=== PATIENT | female | born 1975 | race American Indian/Alaskan Native ===

== ENCOUNTER 2019-08-18 02:41 | Inpatient (IN) | payer OTHER ==
[2019-08-18] MEDS ORDERED: NACL 0.9% 500 ML 500 ML IV ONE (03:24)
[2019-08-18] MEDS ORDERED: TYLENOL PO ONE (03:58)
[2019-08-18 04:13] LABS: Hematocrit 39.1 % (30.3-42.9); Hemoglobin 12.6 gm/dl (10.1-14.3); Mean Corpuscular HGB Conc 32 % (30-34); Mean Corpuscular Volume 83 fl (79-97); Platelet Count 331 K/mm3 (140-440); Red Blood Count 4.71 M/mm3 (3.65-5.03); Red Cell Distribution Width 14.7 % (13.2-15.2)
[2019-08-18 04:31] LABS: INR 1.26 (0.87-1.13)
[2019-08-18] MEDS ORDERED: ROCEPHIN/NS 2 GM/100 ML 2 GM/100 ML BAG IV ONE (04:50)
[2019-08-18 04:57] LABS: Basophils % (Manual) 0 % (0.0-1.8); Eosinophils % (Manual) 0 % (0.0-4.3); Total Cells Counted 100
[2019-08-18 04:58] LABS: Anisocytosis 1+; Platelet Estimate Consistent w Auto
[2019-08-18 05:00] LABS: Alanine Aminotransferase TNR units/L (7-56); Albumin TNR g/dL (3.9-5); BUN/Creatinine Ratio TNR; Blood Urea Nitrogen TNR mg/dL (7-17); Calcium TNR mg/dL (8.4-10.2)
[2019-08-18 05:01] LABS: Hemolysis Index TNR
--- NOTE | 2019-08-18 05:50 | Cat Scan Report ---
CONTRAST-ENHANCED CT SCAN OF THE NECK: INDICATION: sore throat, leukocytosis, neck swelling TECHNIQUE: Contiguous thin cut axial images obtained through the neck following IV injection of 100 mL of Omnipa que 300. Sagittal and coronal reconstructions performed by the technologist. All CT scans at this [facility] ation are performed using CT dose reduction for ALARA by means of automated exposure control. COMPARISON: None available. FINDINGS: MUCOSAL SPACE: Both faucial tonsils are enlarged. I do not see CT findings to suggest tonsillar absce ss at this time. Airway is narrowed. 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 Oropharynx and vallecula, floor of mouth, hypopharynx, and larynx are grossly normal. LYMPH NODES: Reactive lymph nodes are seen level2 & level 3. SALIVARY GLANDS: Parotid, submandibular, and visualized sublingual glands are within normal limits. THYROID GLAND: Unremarkable. PARANASAL SINUSES: Visualized paranasal sinuses and mastoid air cells are essentially clear. SPINE: No significant abnormality of the cervical spine appreciated. VASCULAR STRUCTURES: Vascular structures are grossly normal in appearance. Surrounding soft tissues are otherwise grossly normal. IMPRESSION: 1. Both faucial tonsils are markedly enlarged narrowing the airway I do not see CT findings to suggest peritonsillar abscess Signer Name: She Hamlin MD Signed: 08/18/2019 5:46 AM Workstation Name: [id number]
[2019-08-18 05:56] LABS: Alanine Aminotransferase 35 units/L (7-56); Albumin 3.6 g/dL (3.9-5); BUN/Creatinine Ratio 13; Blood Urea Nitrogen 8 mg/dL (7-17); Calcium 8.1 mg/dL (8.4-10.2); Hemolysis Index 6
[2019-08-18] MEDS ORDERED: CLEOCIN 600 MG/50 mL 600 MG/50 ML BAG IV ONE (06:10)
[2019-08-18] MEDS ORDERED: NACL 0.9% 1000 ML 1,000 ML IV ONE (06:11)
--- NOTE | 2019-08-18 06:11 | Emergency Department Report ---
ED General Adult HPI - General Chief complaint: Sore Throat Stated complaint: FLU SYMPTOMS Time Seen by Provider: 08/18/19 06:08 Source: patient Mode of arrival: Ambulatory Limitations: No Limitations - History of Present Illness Initial comments: 44-year-old female with sore throat for the past few days. She states that she noted that her voice was "different this morning"but did not have any drooling or any ofelia difficulty in breathing. She's had an occasional cough. She was not aware of her fever and has not been having chills. She denies medical comorbidities other than rheumatoid arthritis. He states that she is on Humira. -: Gradual, days(s) Location: mouth (throat) Severity scale (0 -10): 8 Quality: other (sore) Consistency: constant Improves with: none Worsens with: none Associated Symptoms: denies other symptoms Treatments Prior to Arrival: none - Related Data Allergies Allergy/AdvReac Type Severity Reaction Status Date / Time No Known Allergies Allergy Verified 08/18/19 02:49 ED Review of Systems ROS: Stated complaint: FLU SYMPTOMS Other details as noted in HPI Constitutional: denies: chills, fever Eyes: denies: eye pain, eye discharge, vision change ENT: throat pain. denies: ear pain Respiratory: denies: cough (very occasional), shortness of breath, wheezing Cardiovascular: denies: chest pain, palpitations Endocrine: no symptoms reported Gastrointestinal: denies: abdominal pain, nausea, diarrhea Genitourinary: denies: urgency, dysuria, discharge Musculoskeletal: denies: back pain, joint swelling, arthralgia Skin: denies: rash, lesions Neurological: denies: headache, weakness, paresthesias Psychiatric: denies: anxiety, depression Hematological/Lymphatic: denies: easy bleeding, easy bruising ED Past Medical Hx - Past Medical History Hx Arthritis: Yes (rheumatoid) - Surgical History Past Surgical History?: Yes Hx Appendectomy: Yes - Social History Smoking Status: Never Smoker Substance Use Type: None ED Physical Exam - General Limitations: Physical Limitation General appearance: alert, in no apparent distress, obese - Head Head exam: Present: atraumatic, normocephalic - Eye Eye exam: Present: normal appearance. Absent: scleral icterus - ENT ENT exam: Present: mucous membranes moist, other (exudative pharyngitis begin tonsillar swelling. No trismus.) - Neck Neck exam: Present: normal inspection, full ROM, lymphadenopathy (bilateral submandibular nodes no neck edema no erythema no fluctuance and no mass affect). Absent: tenderness, meningismus, thyromegaly - Respiratory Respiratory exam: Present: normal lung sounds bilaterally. Absent: respiratory distress - Cardiovascular Cardiovascular Exam: Present: normal rhythm, tachycardia. Absent: systolic murmur, diastolic murmur, rubs, gallop - GI/Abdominal GI/Abdominal exam: Present: soft, normal bowel sounds. Absent: distended, tenderness, guarding, rebound, rigid - Extremities Exam Extremities exam: Present: normal inspection - Back Exam Back exam: Present: normal inspection - Neurological Exam Neurological exam: Present: alert, oriented X3, CN II-XII intact. Absent: motor sensory deficit - Psychiatric Psychiatric exam: Present: normal affect, normal mood - Skin Skin exam: Present: warm, dry, intact, normal color. Absent: rash ED Course Vital Signs 08/18/19 08/18/19 08/18/19 02:48 03:21 03:23 Temperature 100.4 F H 102.2 F H Pulse Rate 134 H 130 H Pulse Rate [ Anterior Bilateral Throughout] Respiratory 20 32 H Rate Respiratory Rate [Anterior Bilateral Throughout] Blood Pressure 132/83 Blood Pressure [Left] O2 Sat by Pulse 100 96 Oximetry 08/18/19 08/18/19 08/18/19 03:31 03:45 04:01 Temperature Pulse Rate 126 H 121 H 119 H Pulse Rate [ Anterior Bilateral Throughout] Respiratory 31 H 12 26 H Rate Respiratory Rate [Anterior Bilateral Throughout] Blood Pressure 145/67 145/67 115/52 Blood Pressure [Left] O2 Sat by Pulse 96 98 93 Oximetry 08/18/19 08/18/19 08/18/19 04:15 04:18 04:30 Temperature Pulse Rate 119 H 117 H Pulse Rate [ Anterior Bilateral Throughout] Respiratory 28 H 26 H 24 Rate Respiratory Rate [Anterior Bilateral Throughout] Blood Pressure 118/53 125/70 Blood Pressure [Left] O2 Sat by Pulse 95 94 Oximetry 08/18/19 08/18/19 08/18/19 04:52 05:08 05:31 Temperature 102.9 F H Pulse Rate Pulse Rate [ Anterior Bilateral Throughout] Respiratory 16 22 Rate Respiratory Rate [Anterior Bilateral Throughout] Blood Pressure 108/63 Blood Pressure [Left] O2 Sat by Pulse Oximetry 08/18/19 08/18/19 08/18/19 06:01 06:31 06:47 Temperature Pulse Rate Pulse Rate [ Anterior Bilateral Throughout] Respiratory 24 29 H 19 Rate Respiratory Rate [Anterior Bilateral Throughout] Blood Pressure 108/63 120/72 Blood Pressure [Left] O2 Sat by Pulse 97 Oximetry 08/18/19 08/18/19 08/18/19 07:00 07:27 08:05 Temperature 98.2 F Pulse Rate 100 H 102 H Pulse Rate [ 109 H Anterior Bilateral Throughout] Respiratory 30 H 16 Rate Respiratory 20 Rate [Anterior Bilateral Throughout] Blood Pressure 107/65 Blood Pressure 107/62 [Left] O2 Sat by Pulse 87 100 Oximetry - Reevaluation(s) Reevaluation #1: The patient's CT shows significant tonsillar hypertrophy and airway narrowing at the level however the patient is able to lay down supine. When she is awake her sats are quite normal. She has no respiratory distress she has no trismus she has no drooling. I asked the anesthesiologist to consult on this patient. He examined her airway. He stated that he gets actually see her epiglottis and that it looked fine. He had a good airway view on a Mallenpati Exam therefore. Stated that the patient might benefit from racemic epi neb which I have already ordered. He stated that the patient could be noted to the ICU here. He does not anticipate any difficulty with intubation. However, we agree that the patient's airway does not require preemptive management. In fact, we do not think that future intubation is at all likely. 08/18/19 08:50 Reevaluation #2: Spoke with the ENT specialist at [facility]. She stated that she does not believe it is necessary to transfer this patient. She stated that many patients with tremendous tonsils have similar CTs and do not require any acute intervention. She states she has never had a patient with tonsillitis require airway intervention. Furthermore she states that airway management should not be difficult with direct laryngoscopy and the patient with large tonsils. Therefore she states that the patient does not require transfer for ENT consultation at this time. Hospitalist staff was informed. They have agreed to admit the patient to this facility. 08/18/19 09:25 ED Medical Decision Making - Lab Data Result diagrams: 08/18/19 03:45 08/18/19 05:29 Laboratory Results - last 24 hr 08/18/19 08/18/19 08/18/19 03:44 03:44 03:45 WBC 26.8 H RBC 4.71 Hgb 12.6 Hct 39.1 MCV 83 MCH 27 L MCHC 32 RDW 14.7 Plt Count 331 Add Manual Diff Complete Total Counted 100 Seg Neuts % (Manual) 84.0 H Band Neutrophils % 0 Lymphocytes % (Manual) 6.0 L Reactive Lymphs % (Man) 0 Monocytes % (Manual) 10.0 H Eosinophils % (Manual) 0 Basophils % (Manual) 0 Metamyelocytes % 0 Myelocytes % 0 Promyelocytes % 0 Blast Cells % 0 Nucleated RBC % Not Reportable Seg Neutrophils # Man 22.5 H Band Neutrophils # 0.0 Lymphocytes # (Manual) 1.6 Abs React Lymphs (Man) 0.0 Monocytes # (Manual) 2.7 H Eosinophils # (Manual) 0.0 Basophils # (Manual) 0.0 Metamyelocytes # 0.0 Myelocytes # 0.0 Promyelocytes # 0.0 Blast Cells # 0.0 WBC Morphology Not Reportable Hypersegmented Neuts Not Reportable Hyposegmented Neuts Not Reportable Hypogranular Neuts Not Reportable Smudge Cells Not Reportable Toxic Granulation Not Reportable Toxic Vacuolation Not Reportable Dohle Bodies Not Reportable Pelger-Huet Anomaly Not Reportable Luz Maria Rods Not Reportable Platelet Estimate Consistent w auto Clumped Platelets Not Reportable Plt Clumps, EDTA Not Reportable Large Platelets Not Reportable Giant Platelets Not Reportable Platelet Satelliting Not Reportable Plt Morphology Comment Not Reportable RBC Morphology Not Reportable Dimorphic RBCs Not Reportable Polychromasia Not Reportable Hypochromasia Not Reportable Poikilocytosis Not Reportable Anisocytosis 1+ Microcytosis Not Reportable Macrocytosis Not Reportable Spherocytes Not Reportable Pappenheimer Bodies Not Reportable Sickle Cells Not Reportable Target Cells Not Reportable Tear Drop Cells Not Reportable Ovalocytes Not Reportable Helmet Cells Not Reportable [place] Bodies Not Reportable [place] Rings Not Reportable [place] Cells Not Reportable Bite Cells Not Reportable Crenated Cell Not Reportable Elliptocytes Not Reportable Acanthocytes (Spur) Not Reportable Rouleaux Not Reportable Hemoglobin C Crystals Not Reportable Schistocytes Not Reportable Malaria parasites Not Reportable William Bodies Not Reportable Hem Pathologist Commnt No PT 15.5 H INR 1.26 H VBG pH 7.438 H Sodium Potassium Chloride Carbon Dioxide Anion Gap BUN Creatinine Estimated GFR BUN/Creatinine Ratio Glucose Lactic Acid Calcium Total Bilirubin AST ALT Alkaline Phosphatase Total Protein Albumin Albumin/Globulin Ratio HCG, Qual 08/18/19 08/18/19 08/18/19 03:45 03:45 03:50 WBC RBC Hgb Hct MCV MCH MCHC RDW Plt Count Add Manual Diff Total Counted Seg Neuts % (Manual) Band Neutrophils % Lymphocytes % (Manual) Reactive Lymphs % (Man) Monocytes % (Manual) Eosinophils % (Manual) Basophils % (Manual) Metamyelocytes % Myelocytes % Promyelocytes % Blast Cells % Nucleated RBC % Seg Neutrophils # Man Band Neutrophils # Lymphocytes # (Manual) Abs React Lymphs (Man) Monocytes # (Manual) Eosinophils # (Manual) Basophils # (Manual) Metamyelocytes # Myelocytes # Promyelocytes # Blast Cells # WBC Morphology Hypersegmented Neuts Hyposegmented Neuts Hypogranular Neuts Smudge Cells Toxic Granulation Toxic Vacuolation Dohle Bodies Pelger-Huet Anomaly Luz Maria Rods Platelet Estimate Clumped Platelets Plt Clumps, EDTA Large Platelets Giant Platelets Platelet Satelliting Plt Morphology Comment RBC Morphology Dimorphic RBCs Polychromasia Hypochromasia Poikilocytosis Anisocytosis Microcytosis Macrocytosis Spherocytes Pappenheimer Bodies Sickle Cells Target Cells Tear Drop Cells Ovalocytes Helmet Cells [place] Bodies [place] Rings [place] Cells Bite Cells Crenated Cell Elliptocytes Acanthocytes (Spur) Rouleaux Hemoglobin C Crystals Schistocytes Malaria parasites William Bodies Hem Pathologist Commnt PT INR VBG pH Sodium TNR Potassium TNR Chloride TNR Carbon Dioxide TNR Anion Gap TNR BUN TNR Creatinine TNR Estimated GFR TNR BUN/Creatinine Ratio TNR Glucose TNR Lactic Acid 1.60 Calcium TNR Total Bilirubin TNR AST TNR ALT TNR Alkaline Phosphatase TNR Total Protein TNR Albumin TNR Albumin/Globulin Ratio TNR HCG, Qual Negative 08/18/19 08/18/19 05:29 05:29 WBC RBC Hgb Hct MCV MCH MCHC RDW Plt Count Add Manual Diff Total Counted Seg Neuts % (Manual) Band Neutrophils % Lymphocytes % (Manual) Reactive Lymphs % (Man) Monocytes % (Manual) Eosinophils % (Manual) Basophils % (Manual) Metamyelocytes % Myelocytes % Promyelocytes % Blast Cells % Nucleated RBC % Seg Neutrophils # Man Band Neutrophils # Lymphocytes # (Manual) Abs React Lymphs (Man) Monocytes # (Manual) Eosinophils # (Manual) Basophils # (Manual) Metamyelocytes # Myelocytes # Promyelocytes # Blast Cells # WBC Morphology Hypersegmented Neuts Hyposegmented Neuts Hypogranular Neuts Smudge Cells Toxic Granulation Toxic Vacuolation Dohle Bodies Pelger-Huet Anomaly Luz Maria Rods Platelet Estimate Clumped Platelets Plt Clumps, EDTA Large Platelets Giant Platelets Platelet Satelliting Plt Morphology Comment RBC Morphology Dimorphic RBCs Polychromasia Hypochromasia Poikilocytosis Anisocytosis Microcytosis Macrocytosis Spherocytes Pappenheimer Bodies Sickle Cells Target Cells Tear Drop Cells Ovalocytes Helmet Cells [place] Bodies [place] Rings [place] Cells Bite Cells Crenated Cell Elliptocytes Acanthocytes (Spur) Rouleaux Hemoglobin C Crystals Schistocytes Malaria parasites William Bodies Hem Pathologist Commnt PT INR VBG pH Sodium 136 L Potassium 4.0 Chloride 100.7 Carbon Dioxide 21 L Anion Gap 18 BUN 8 Creatinine 0.6 L Estimated GFR > 60 BUN/Creatinine Ratio 13 Glucose 136 H Lactic Acid 0.70 Calcium 8.1 L Total Bilirubin 0.30 AST 46 H ALT 35 Alkaline Phosphatase 87 Total Protein 6.8 Albumin 3.6 L Albumin/Globulin Ratio 1.1 HCG, Qual Critical care attestation.: If time is entered above; I have spent that time in minutes in the direct care of this critically ill patient, excluding procedure time. ED Disposition Clinical Impression: Exudative tonsillitis, SIRS (systemic inflammatory response syndrome) Rheumatoid arthritis Qualifiers: Rheumatoid arthritis location: unspecified site Rheumatoid factor presence: unspecified presence Qualified Code(s): M06.9 - Rheumatoid arthritis, unspecified Disposition: OP ADMIT IP TO THIS HOSP Is pt being admited?: Yes Does the pt Need Aspirin: Yes Condition: Stable Time of Disposition: 09:27
[2019-08-18] MEDS ORDERED: SOLU-Medrol IV ONE (06:35)
[2019-08-18] MEDS ORDERED: MORPHINE IV ONE ×2 (06:35→11:07)
[2019-08-18] MEDS ORDERED: ZOFRAN IV ONE (06:35)
[2019-08-18 06:50] LABS: Bilirubin,Urine NEG (Negative); Blood,Urine LG (Negative); Color,Urine Yellow (Yellow); Mucus,Urine FEW /HPF; Protein,Urine <15 mg/dL mg/dL (Negative); Urobilinogen,Urine < 2.0 mg/dL (<2.0)
[2019-08-18] MEDS ORDERED: BABY ASPIRIN PO ONE (09:28)
--- NOTE | 2019-08-18 10:39 | History and Physical Report ---
History of Present Illness Date of examination: 08/18/19 Chief complaint: Sore Throat History of present illness: Patient was seen and examined. Follow-up on current diagnosis. No overnight events reported to me. Patient denies any chest pain, shortness breath, nausea/vomiting or severe headaches. Imaging, nursing note, chart, labs and old chart reviewed. Discussed with patient. PMH: as hpi PSH: appendectomy SH: denies tob/etoh/drug abuse FH: uncle with hypertension ROS: Constitutional: denies: fever ENT: +throat or neck pain Respiratory: denies: cough, + shortness of breath Cardiovascular: denies: chest pain Endocrine: denies unexplained weight loss or gain Gastrointestinal: denies: abdominal pain, nausea Genitourinary: denies: dysuria Rectal: denies no incontinence, no bleeding, no itching, no discharge Musculoskeletal: denies swelling, myaglia, muscle weakness Skin: denies: rash Neurological: denies: severe headache Hematological/Lymphatic: denies: easy bleeding or easy bruising Allergic/Immunologic: no urticaria, no allergic rhinitis, no anaphylaxis Psych: denies sadness or hopelessness, SI/HI Medications and Allergies Allergies Allergy/AdvReac Type Severity Reaction Status Date / Time No Known Allergies Allergy Verified 08/18/19 02:49 Active Meds: Active Medications Acetaminophen (Tylenol) 650 mg PO Q6H PRN PRN Reason: Non Cardiac Pain or Temp>100.5 Heparin Sodium (Porcine) (Heparin) 5,000 unit SUB-Q Q12HR DIEGO Ampicillin Sodium/Sulbactam Sodium (Unasyn/Ns 3 Gm/100 Ml) 3 gm in 100 mls @ 200 mls/hr IV Q6HR DIEGO; Protocol Sodium Chloride (Nacl 0.9% 1000 Ml) 1,000 mls @ 100 mls/hr IV DIRECT DIEGO Morphine Sulfate (Morphine) 2 mg IV Q4H PRN PRN Reason: Pain , Severe (7-10) Ondansetron HCl (Zofran) 4 mg IV Q4H PRN PRN Reason: Nausea And Vomiting Exam - Physical Exam Narrative exam: Gen: obese bmi 46.7, ill appearing, NAD, Awake, Alert, Orientated x 3 HEENT: NCAT, EOMI, PERRL, OP narrowing toward uvula, enlarged tonsils bilateral, whitish yellow exudates Neck: supple, no adenopathy, no thyromegaly, no JVD CVS/Heart: RRR, normal S1S2, pulses present bilaterally Chest/Lungs: CTA B, Symmetrical chest expansion, good air entry bilaterally GI/Abdomen: soft, NTND, good bowel sounds, no guarding or rebound /Bladder: no suprapubic tenderness, no CVA or paraspinal tenderness Extermity/Skin: no c/c/e, no obvious rash MSK: FROM x 4 Neuro: CN 2-12 grossly intact, no new focal deficits Psych: calm - Constitutional Vitals: Temp Pulse Resp BP Pulse Ox 98.2 F 105 H 20 128/74 93 08/18/19 07:27 08/18/19 09:44 08/18/19 08:05 08/18/19 09:30 08/18/19 09:30 Results - Labs CBC & Chem 7: 08/18/19 03:45 08/18/19 05:29 Labs: Abnormal lab results 08/18/19 08/18/19 08/18/19 Range/Units 03:44 03:44 03:45 WBC 26.8 H (4.5-11.0) K/mm3 MCH 27 L (28-32) pg Seg Neuts % (Manual) 84.0 H (40.0-70.0) % Lymphocytes % (Manual) 6.0 L (13.4-35.0) % Monocytes % (Manual) 10.0 H (0.0-7.3) % Seg Neutrophils # Man 22.5 H (1.8-7.7) K/mm3 Monocytes # (Manual) 2.7 H (0.0-0.8) K/mm3 PT 15.5 H (12.2-14.9) Sec. INR 1.26 H (0.87-1.13) VBG pH 7.438 H (7.320-7.420) Sodium (137-145) mmol/L Carbon Dioxide (22-30) mmol/L Creatinine (0.7-1.2) mg/dL Glucose (65-100) mg/dL Calcium (8.4-10.2) mg/dL AST (5-40) units/L Albumin (3.9-5) g/dL Ur Specific [place] (1.003-1.030) 08/18/19 08/18/19 Range/Units 05:29 06:36 WBC (4.5-11.0) K/mm3 MCH (28-32) pg Seg Neuts % (Manual) (40.0-70.0) % Lymphocytes % (Manual) (13.4-35.0) % Monocytes % (Manual) (0.0-7.3) % Seg Neutrophils # Man (1.8-7.7) K/mm3 Monocytes # (Manual) (0.0-0.8) K/mm3 PT (12.2-14.9) Sec. INR (0.87-1.13) VBG pH (7.320-7.420) Sodium 136 L (137-145) mmol/L Carbon Dioxide 21 L (22-30) mmol/L Creatinine 0.6 L (0.7-1.2) mg/dL Glucose 136 H (65-100) mg/dL Calcium 8.1 L (8.4-10.2) mg/dL AST 46 H (5-40) units/L Albumin 3.6 L (3.9-5) g/dL Ur Specific [place] 1.058 H (1.003-1.030) Assessment and Plan Patient is a 44 yo woman with a history of RA on Humira who presents to [facility] ED with severe constant throbbing, sharp nonradiating worsening sore throat x 2-3 days associated bilateral throat pains, difficult swallowing, voice hoarseness and SOB. She denies chest pains, trauma, cough, fevers and chills. * CT neck with contrast IMPRESSION: 1. Both faucial tonsils are markedly e nlarged narrowing the airway I do not see CT findings to suggest peritonsillar abscess * Initial WBC 26.8 Sepsis tonsilitis: treat with abx, consulted ID Tonsilitis with airway compromise: treat with IV Abx, consulted ENT Dr. Nguyễn Bateman and Intensvist RA on Humira, immunocompromise: consulted ID Hyponatremia, hypovolemia: treat with IVFs Mildly isolated AST elevation at 46 (normal up to 40): periodic monitoring Obesity, BMI 46.7: lifestyle modification DVT ppx sq heparin GI ppx iv protonix Nutrition: clear liquids full code
[2019-08-18] MEDS ORDERED: MORPHINE ONE ×2 (10:58→20:53)
[2019-08-18] MEDS: MORPHINE IV PRN ×2 (11:08→20:55)
[2019-08-18] MEDS ORDERED: BABY ASPIRIN ONE (11:29)
[2019-08-18] MEDS ORDERED: PROTONIX IV ONE (11:30)
[2019-08-18] MEDS: PROTONIX IV SCH (11:33)
[2019-08-18] MEDS ORDERED: UNASYN/NS 3 GM/100 ML 3 GM/100 ML BAG IV SCH (12:00)
[2019-08-18] MEDS ORDERED: SOLU-Medrol ONE (15:11)
[2019-08-18] MEDS: SOLU-Medrol IV SCH ×2 (15:19→22:57)
--- NOTE | 2019-08-18 16:05 | Consultation ---
History of Present Illness - Reason for Consult Consult date: 08/18/19 Tonsillitis, immunocompromised Requesting physician: OPAL RENDON - History of Present Illness The patient is a 44-year-old female with rheumatoid arthritis who is on immunosuppression with Humira presented to the emergency room early this morning with complaints of severe sore throat and difficulty swallowing that began about 2-3 days prior. She has been febrile up to 102 F and was noted to have marked enlargement of tonsils bilaterally with narrowing of the airway on CT neck along with leucocytosis. She has previously had similar tonsillitis before and was recommended to get them removed but decided to hold off. Denies any sick contacts. Also reports her voice is hoarse. Review of Systems: General: fever + HEENT: no new visual disturbance Respiratory: No cough, sputum, hemoptysis. Mild shortness of breath Cardiovascular: No chest pain, syncope Gastrointestinal: No nausea, vomiting or diarrhea Genitourinary: No dysuria or hematuria Musculoskeletal: +neck pain no back pain Neurologic: No headaches, seizures Hematologic: No easy bruising or bleeding Endocrine: No night sweats or acute weight loss Skin: negative for rash, jaundice Psychiatric: No suicidal or homicidal ideation Medications and Allergies Allergies Allergy/AdvReac Type Severity Reaction Status Date / Time No Known Allergies Allergy Verified 08/18/19 02:49 Home Medications Medication Instructions Recorded Confirmed Last Taken Type Adalimumab [Humira] 40 mg SQ Q14D 08/18/19 08/18/19 08/16/19 History Emtricitabin/Tenofovir [TRUVADA 1 tab PO QDAY 08/18/19 08/18/19 08/15/19 History 200-300 mg] Folic Acid [Folvite] 1 mg PO QDAY 08/18/19 08/18/19 08/15/19 History metHOTREXate(DOSE WEEKLY ONLY) 20 mg PO QWEEK 08/18/19 08/18/19 Unknown History [metHOTREXate (DOSE WEEKLY ONLY)] predniSONE [Deltasone] 5 mg PO QDAY 08/18/19 08/18/19 08/15/19 History Active Meds: Active Medications Acetaminophen (Tylenol) 650 mg PO Q6H PRN PRN Reason: Non Cardiac Pain or Temp>100.5 Heparin Sodium (Porcine) (Heparin) 5,000 unit SUB-Q Q12HR [facility] Ampicillin Sodium/Sulbactam Sodium (Unasyn/Ns 3 Gm/100 Ml) 3 gm in 100 mls @ 200 mls/hr IV Q6HR [facility]; Protocol Last Admin: 08/18/19 12:07 Dose: 200 mls/hr Documented by: Sodium Chloride (Nacl 0.9% 1000 Ml) 1,000 mls @ 100 mls/hr IV DIRECT [place] Methylprednisolone Sodium Succinate (Solu-Medrol) 125 mg IV Q8HR [facility] Last Admin: 08/18/19 15:19 Dose: 125 mg Documented by: Morphine Sulfate (Morphine) 2 mg IV Q4H PRN PRN Reason: Pain , Severe (7-10) Last Admin: 08/18/19 11:08 Dose: 2 mg Documented by: Ondansetron HCl (Zofran) 4 mg IV Q4H PRN PRN Reason: Nausea And Vomiting Pantoprazole Sodium (Protonix) 40 mg IV QDAY [facility] Last Admin: 08/18/19 11:33 Dose: 40 mg Documented by: Physical Examination - Physical Exam Narrative exam: Physical Exam: Constitutional: Alert, cooperative. No acute distress. Obese Head, Ears, Nose: Normocephalic, atraumatic. External ears, nose normal Eyes: Conjunctivae/corneas clear. No icterus. No ptosis. Neck: Supple, no meningeal signs, tender and swollen b/l Oral: dentition fair, no thrush Cardiovascular: S1, S2 normal. Respiratory: Good air entry, clear to auscultation bilaterally GI: Soft, non-tender; bowel sounds normal. No peritoneal signs Musculoskeletal: No pedal edema, no cyanosis. Skin: No rash or abscess Hem/Lymphatic: No palpable cervical or supraclavicular nodes. No lymphangitis Psych: Mood ok. Affect normal Neurological: Awake, alert, oriented. No gross abnormality - Constitutional Vitals: Vital Signs Temp Pulse Resp BP Pulse Ox 98.2 F 98 H 20 114/70 92 08/18/19 07:27 08/18/19 13:43 08/18/19 08:05 08/18/19 15:00 08/18/19 15:00 Temperature -Last 24 Hours Temperature 98.2 F Temperature 102.9 F Temperature 102.2 F Temperature 100.4 F Results - Labs CBC & Chem 7: 08/18/19 03:45 08/18/19 05:29 Labs: Abnormal lab results 08/18/19 08/18/19 08/18/19 Range/Units 03:44 03:44 03:45 WBC 26.8 H (4.5-11.0) K/mm3 MCH 27 L (28-32) pg Seg Neuts % (Manual) 84.0 H (40.0-70.0) % Lymphocytes % (Manual) 6.0 L (13.4-35.0) % Monocytes % (Manual) 10.0 H (0.0-7.3) % Seg Neutrophils # Man 22.5 H (1.8-7.7) K/mm3 Monocytes # (Manual) 2.7 H (0.0-0.8) K/mm3 PT 15.5 H (12.2-14.9) Sec. INR 1.26 H (0.87-1.13) VBG pH 7.438 H (7.320-7.420) Sodium (137-145) mmol/L Carbon Dioxide (22-30) mmol/L Creatinine (0.7-1.2) mg/dL Glucose (65-100) mg/dL Calcium (8.4-10.2) mg/dL AST (5-40) units/L Albumin (3.9-5) g/dL Ur Specific [place] (1.003-1.030) 08/18/19 08/18/19 Range/Units 05:29 06:36 WBC (4.5-11.0) K/mm3 MCH (28-32) pg Seg Neuts % (Manual) (40.0-70.0) % Lymphocytes % (Manual) (13.4-35.0) % Monocytes % (Manual) (0.0-7.3) % Seg Neutrophils # Man (1.8-7.7) K/mm3 Monocytes # (Manual) (0.0-0.8) K/mm3 PT (12.2-14.9) Sec. INR (0.87-1.13) VBG pH (7.320-7.420) Sodium 136 L (137-145) mmol/L Carbon Dioxide 21 L (22-30) mmol/L Creatinine 0.6 L (0.7-1.2) mg/dL Glucose 136 H (65-100) mg/dL Calcium 8.1 L (8.4-10.2) mg/dL AST 46 H (5-40) units/L Albumin 3.6 L (3.9-5) g/dL Ur Specific [place] 1.058 H (1.003-1.030) - Imaging and Cardiology CT Scan - head: report reviewed, image reviewed (CT neck shows marked enlargement of tonsils bilaterally with narrowing of the airway. No findings of peritonsillar abscess.) Assessment and Plan Cultures: 08/18/2019 blood culture: In progress A/P: 44-year-old female with rheumatoid arthritis who is on immunosuppression with Humira presented to the emergency room early this morning with complaints of severe sore throat and difficulty swallowing that began about 2-3 days prior: 1) Sepsis, secondary to severe bilateral tonsillitis: Patient is immunocompromised secondary to rheumatoid arthritis and Humira use. Has signif icant leukocytosis which is neutrophilic. Monospot negative. ?acute on chronic. She has previously had similar tonsillitis before and was recommended to get them removed but decided to hold off. Recs: Treat empirically with Ceftriaxone, Flagyl Also rule out viral etiology: EBV and CMV serologies ordered (Monospot can be negative early on in the disease process) Supportive care with close monitoring of airway given risk of impending respiratory failure ENT eval would be helpful D/W Dr. Rendon. Holly Carty MD, FACP [facility] ([facility] C: [phone] O: [phone] F: [phone]
[2019-08-18] MEDS: FLAGYL 500 MG/100 ML 500 MG/100 ML BAG IV SCH ×2 (18:20→22:55)
[2019-08-18] MEDS: ROCEPHIN/NS 2 GM/100 ML 2 GM/100 ML BAG IV SCH (19:04)
[2019-08-18] MEDS ORDERED: NACL 0.9% 1000 ML 1,000 ML ONE (20:53)
[2019-08-18] MEDS: NACL 0.9% 1000 ML 1,000 ML IV SCH ×2 (20:55→22:54)
[2019-08-19] MEDS: MORPHINE IV PRN (03:05)
[2019-08-19 04:16] LABS: Hematocrit 35.4 % (30.3-42.9); Hemoglobin 11.3 gm/dl (10.1-14.3); Mean Corpuscular HGB Conc 32 % (30-34); Mean Corpuscular Volume 83 fl (79-97); Platelet Count 308 K/mm3 (140-440); Red Blood Count 4.27 M/mm3 (3.65-5.03); Red Cell Distribution Width 14.7 % (13.2-15.2)
[2019-08-19 04:39] LABS: Alanine Aminotransferase 28 units/L (7-56); Albumin 3.2 g/dL (3.9-5); BUN/Creatinine Ratio 20; Blood Urea Nitrogen 10 mg/dL (7-17); Calcium 8.3 mg/dL (8.4-10.2); Hemolysis Index 7
[2019-08-19] MEDS ORDERED: TESSALON PERLES PO PRN (04:54)
[2019-08-19] MEDS: TYLENOL PO PRN ×3 (05:15→20:00)
[2019-08-19] MEDS: FLAGYL 500 MG/100 ML 500 MG/100 ML BAG IV SCH ×3 (05:15→21:31)
[2019-08-19] MEDS: CEPACOL X STRENGTH MM PRN (05:16)
[2019-08-19] MEDS: SOLU-Medrol IV SCH ×3 (05:16→21:32)
[2019-08-19] MEDS: NACL 0.9% 1000 ML 1,000 ML IV SCH ×2 (08:17→20:01)
--- NOTE | 2019-08-19 09:25 | Consultation ---
History of Present Illness Consult date: 08/19/19 Medications and Allergies Allergies Allergy/AdvReac Type Severity Reaction Status Date / Time No Known Allergies Allergy Verified 08/18/19 02:49 Home Medications Medication Instructions Recorded Confirmed Last Taken Type Adalimumab [Humira] 40 mg SQ Q14D 08/18/19 08/18/19 08/16/19 History Emtricitabin/Tenofovir [TRUVADA 1 tab PO QDAY 08/18/19 08/18/19 08/15/19 History 200-300 mg] Folic Acid [Folvite] 1 mg PO QDAY 08/18/19 08/18/19 08/15/19 History metHOTREXate(DOSE WEEKLY ONLY) 20 mg PO QWEEK 08/18/19 08/18/19 Unknown History [metHOTREXate (DOSE WEEKLY ONLY)] predniSONE [Deltasone] 5 mg PO QDAY 08/18/19 08/18/19 08/15/19 History Active Meds: Active Medications Acetaminophen (Tylenol) 650 mg PO Q6H PRN PRN Reason: Non Cardiac Pain or Temp>100.5 Last Admin: 08/19/19 05:15 Dose: 650 mg Documented by: Benzocaine/Menthol (Cepacol X Strength) 1 each MM Q2HR PRN PRN Reason: Sore Throat Last Admin: 08/19/19 05:16 Dose: 1 each Documented by: Benzonatate (Tessalon Perles) 100 mg PO Q8HR PRN PRN Reason: cough Heparin Sodium (Porcine) (Heparin) 5,000 unit SUB-Q Q12HR [facility] Sodium Chloride (Nacl 0.9% 1000 Ml) 1,000 mls @ 100 mls/hr IV DIRECT [facility] Last Admin: 08/19/19 08:17 Dose: 100 mls/hr Documented by: Ceftriaxone Sodium (Rocephin/Ns 2 Gm/100 Ml) 2 gm in 100 mls @ 200 mls/hr IV Q24HR [facility]; Protocol Last Admin: 08/18/19 19:04 Dose: 200 mls/hr Documented by: Metronidazole (Flagyl 500 Mg/100 Ml) 500 mg in 100 mls @ 100 mls/hr IV Q8HR [facility]; Protocol Last Admin: 08/19/19 05:15 Dose: 100 mls/hr Documented by: Methylprednisolone Sodium Succinate (Solu-Medrol) 125 mg IV Q8HR [facility] Last Admin: 08/19/19 05:16 Dose: 125 mg Documented by: Morphine Sulfate (Morphine) 2 mg IV Q4H PRN PRN Reason: Pain , Severe (7-10) Last Admin: 08/19/19 03:05 Dose: 2 mg Documented by: Ondansetron HCl (Zofran) 4 mg IV Q4H PRN PRN Reason: Nausea And Vomiting Pantoprazole Sodium (Protonix) 40 mg IV QDAY [facility] Last Admin: 08/18/19 11:33 Dose: 40 mg Documented by: Physical Examination Vital signs: Vital Signs Temp Pulse Resp BP Pulse Ox 100.4 F H 134 H 20 132/83 100 08/18/19 02:48 08/18/19 02:48 08/18/19 02:48 08/18/19 02:48 08/18/19 02:48 Results - Laboratory Findings CBC and BMP: 08/19/19 03:36 08/19/19 03:36 PT/INR, D-dimer PT 15.5 Sec. (12.2-14.9) H 08/18/19 03:44 INR 1.26 (0.87-1.13) H 08/18/19 03:44 Abnormal lab findings: Abnormal Labs 08/18/19 08/18/19 08/18/19 03:44 03:44 03:45 WBC 26.8 H MCH 27 L Seg Neuts % (Manual) 84.0 H Lymphocytes % (Manual) 6.0 L Monocytes % (Manual) 10.0 H Seg Neutrophils # Man 22.5 H Monocytes # (Manual) 2.7 H PT 15.5 H INR 1.26 H VBG pH 7.438 H Sodium Carbon Dioxide Creatinine Glucose Calcium AST Albumin Ur Specific [place] 08/18/19 08/18/19 08/19/19 05:29 06:36 03:36 WBC 29.4 H MCH 27 L Seg Neuts % (Manual) Lymphocytes % (Manual) Monocytes % (Manual) Seg Neutrophils # Man Monocytes # (Manual) PT INR VBG pH Sodium 136 L Carbon Dioxide 21 L Creatinine 0.6 L Glucose 136 H Calcium 8.1 L AST 46 H Albumin 3.6 L Ur Specific [place] 1.058 H 08/19/19 03:36 WBC MCH Seg Neuts % (Manual) Lymphocytes % (Manual) Monocytes % (Manual) Seg Neutrophils # Man Monocytes # (Manual) PT INR VBG pH Sodium Carbon Dioxide Creatinine 0.5 L Glucose 190 H Calcium 8.3 L AST Albumin 3.2 L Ur Specific [place]
[2019-08-19] MEDS: PROTONIX IV SCH (10:07)
[2019-08-19] MEDS: ROCEPHIN/NS 2 GM/100 ML 2 GM/100 ML BAG IV SCH (11:00)
--- NOTE | 2019-08-19 15:44 | Progress Note ---
Assessment and Plan Cultures: 08/18/2019 blood culture: In progress A/P: 44-year-old female with rheumatoid arthritis who is on immunosuppression with Humira presented to the emergency room early this morning with complaints of severe sore throat and difficulty swallowing that began about 2-3 days prior: 1) Sepsis, secondary to severe bilateral tonsillitis: Patient is immunocompromised secondary to rheumatoid arthritis and Humira use. Has significant leukocytosis which is neutrophilic. Monospot negative. ?acute on chronic. She has previously had similar tonsillitis before and was recommended to get them removed but decided to hold off. Recs: Continue Ceftriaxone, Flagyl f/u EBV and CMV serologies ordered (Monospot can be negative early on in the disease process) WBC elevation likely also from steroids Holly Carty MD, FACP [facility] C: [phone] O: [phone] F: [phone] Subjective Date of service: 08/19/19 Interval history: No fever. Voice is improved. Patient feeling better. No cough or shortness of breath. Swallowing better Objective - Exam Narrative Exam: Physical Exam: Constitutional: Alert, cooperative. No acute distress. Obese Head, Ears, Nose: Normocephalic, atraumatic. External ears, nose normal Eyes: Conjunctivae/corneas clear. No icterus. No ptosis. Neck: Supple, no meningeal signs, mild tenderness and swelling b/l Oral: dentition fair, no thrush Cardiovascular: S1, S2 normal. Respiratory: Good air entry, clear to auscultation bilaterally GI: Soft, non-tender; bowel sounds normal. No peritoneal signs Musculoskeletal: No pedal edema, no cyanosis. Skin: No rash or abscess Hem/Lymphatic: No palpable cervical or supraclavicular nodes. No lymphangitis Psych: Mood ok. Affect normal Neurological: Awake, alert, oriented. No gross abnormality - Constitutional Vitals: Vital Signs Temp Pulse Resp BP Pulse Ox 98.5 F 88 17 111/70 99 08/19/19 12:00 08/19/19 15:00 08/19/19 15:10 08/19/19 15:10 08/19/19 15:10 Temperature -Last 24 Hours Temperature 98.5 F Temperature 97.5 F Temperature 98.2 F Temperature 98.5 F Temperature 98.2 F Temperature 98.8 F Temperature 98.7 F - Labs CBC & Chem 7: 08/19/19 03:36 08/19/19 03:36 Labs: Abnormal lab results 08/19/19 08/19/19 Range/Units 03:36 03:36 WBC 29.4 H (4.5-11.0) K/mm3 MCH 27 L (28-32) pg Creatinine 0.5 L (0.7-1.2) mg/dL Glucose 190 H (65-100) mg/dL Calcium 8.3 L (8.4-10.2) mg/dL Albumin 3.2 L (3.9-5) g/dL
--- NOTE | 2019-08-19 18:17 | Progress Note ---
Assessment and Plan - Patient Problems (1) Exudative tonsillitis Current Visit: Yes Status: Acute Plan to address problem: Patient seen to be responding to steroids and IV antibiotics. Patient able to eat now Without any significant changes. Stable to transfer to floor. (2) Rheumatoid arthritis Current Visit: Yes Status: Acute Qualifiers: Rheumatoid arthritis location: unspecified site Rheumatoid factor presence: unspecified presence Qualified Code(s): M06.9 - Rheumatoid arthritis, unspecified Plan to address problem: Patient has no joint pain on the deviation. Continue present medical management. She is immunocompromised secondary to medications but will be able to treat despite this. (3) SIRS (systemic inflammatory response syndrome) Current Visit: Yes Status: Acute Plan to address problem: Resolving with IV antibiotics. (4) Morbid obesity Current Visit: Yes Status: Acute Plan to address problem: Educated about weight loss and surgical options. History Interval history: pt with significant improvemet over pm able to talk better feels as if she can eat throat swelling improved Hospitalist Physical - Constitutional Vitals: Temp Pulse Resp BP Pulse Ox 97.8 F 107 H 19 119/79 98 08/19/19 16:00 08/19/19 18:00 08/19/19 18:10 08/19/19 18:10 08/19/19 18:10 General appearance: Present: no acute distress - EENT Eyes: Present: PERRL, EOM intact ENT: hearing intact, clear oral mucosa, dentition normal, other (patient large tonsils with exudate. Large minimal ) - Neck Neck: Present: supple, normal ROM, other (no lymphadenopathy. Obese neck.) - Respiratory Respiratory effort: other (no swelling no evidence of angioedema.) Respiratory: bilateral: CTA - Cardiovascular Rhythm: regular Heart Sounds: Present: S1 & S2 - Extremities Extremities: no ischemia, pulses intact, pulses symmetrical, No edema, normal temperature, normal color, Full ROM Peripheral Pulses: within normal limits - Abdominal General gastrointestinal: soft, non-tender, non-distended, normal bowel sounds, no hepatomegaly, no splenomegaly - Integumentary Integumentary: Present: clear, warm, dry - Psychiatric Psychiatric: appropriate mood/affect, intact judgment & insight - Neurologic Neurologic: CNII-XII intact, focal deficits, moves all extremities Results - Labs CBC & Chem 7: 08/20/19 09:34 08/20/19 09:34 Labs: Laboratory Last Values WBC 29.4 K/mm3 (4.5-11.0) H 08/19/19 03:36 RBC 4.27 M/mm3 (3.65-5.03) 08/19/19 03:36 Hgb 11.3 gm/dl (10.1-14.3) 08/19/19 03:36 Hct 35.4 % (30.3-42.9) 08/19/19 03:36 MCV 83 fl (79-97) 08/19/19 03:36 MCH 27 pg (28-32) L 08/19/19 03:36 MCHC 32 % (30-34) 08/19/19 03:36 RDW 14.7 % (13.2-15.2) 08/19/19 03:36 Plt Count 308 K/mm3 (140-440) 08/19/19 03:36 Add Manual Diff Complete 08/18/19 03:45 Total Counted 100 08/18/19 03:45 Seg Neuts % (Manual) 84.0 % (40.0-70.0) H 08/18/19 03:45 Band Neutrophils % 0 % 08/18/19 03:45 Lymphocytes % (Manual) 6.0 % (13.4-35.0) L 08/18/19 03:45 Reactive Lymphs % (Man) 0 % 08/18/19 03:45 Monocytes % (Manual) 10.0 % (0.0-7.3) H 08/18/19 03:45 Eosinophils % (Manual) 0 % (0.0-4.3) 08/18/19 03:45 Basophils % (Manual) 0 % (0.0-1.8) 08/18/19 03:45 Metamyelocytes % 0 % 08/18/19 03:45 Myelocytes % 0 % 08/18/19 03:45 Promyelocytes % 0 % 08/18/19 03:45 Blast Cells % 0 % 08/18/19 03:45 Nucleated RBC % Not Reportable 08/18/19 03:45 Seg Neutrophils # Man 22.5 K/mm3 (1.8-7.7) H 08/18/19 03:45 Band Neutrophils # 0.0 K/mm3 08/18/19 03:45 Lymphocytes # (Manual) 1.6 K/mm3 (1.2-5.4) 08/18/19 03:45 Abs React Lymphs (Man) 0.0 K/mm3 08/18/19 03:45 Monocytes # (Manual) 2.7 K/mm3 (0.0-0.8) H 08/18/19 03:45 Eosinophils # (Manual) 0.0 K/mm3 (0.0-0.4) 08/18/19 03:45 Basophils # (Manual) 0.0 K/mm3 (0.0-0.1) 08/18/19 03:45 Metamyelocytes # 0.0 K/mm3 08/18/19 03:45 Myelocytes # 0.0 K/mm3 08/18/19 03:45 Promyelocytes # 0.0 K/mm3 08/18/19 03:45 Blast Cells # 0.0 K/mm3 08/18/19 03:45 WBC Morphology Not Reportable 08/18/19 03:45 Hypersegmented Neuts Not Reportable 08/18/19 03:45 Hyposegmented Neuts Not Reportable 08/18/19 03:45 Hypogranular Neuts Not Reportable 08/18/19 03:45 Smudge Cells Not Reportable 08/18/19 03:45 Toxic Granulation Not Reportable 08/18/19 03:45 Toxic Vacuolation Not Reportable 08/18/19 03:45 Dohle Bodies Not Reportable 08/18/19 03:45 Pelger-Huet Anomaly Not Reportable 08/18/19 03:45 Luz Maria Rods Not Reportable 08/18/19 03:45 Platelet Estimate Consistent w auto 08/18/19 03:45 Clumped Platelets Not Reportable 08/18/19 03:45 Plt Clumps, EDTA Not Reportable 08/18/19 03:45 Large Platelets Not Reportable 08/18/19 03:45 Giant Platelets Not Reportable 08/18/19 03:45 Platelet Satelliting Not Reportable 08/18/19 03:45 Plt Morphology Comment Not Reportable 08/18/19 03:45 RBC Morphology Not Reportable 08/18/19 03:45 Dimorphic RBCs Not Reportable 08/18/19 03:45 Polychromasia Not Reportable 08/18/19 03:45 Hypochromasia Not Reportable 08/18/19 03:45 Poikilocytosis Not Reportable 08/18/19 03:45 Anisocytosis 1+ 08/18/19 03:45 Microcytosis Not Reportable 08/18/19 03:45 Macrocytosis Not Reportable 08/18/19 03:45 Spherocytes Not Reportable 08/18/19 03:45 Pappenheimer Bodies Not Reportable 08/18/19 03:45 Sickle Cells Not Reportable 08/18/19 03:45 Target Cells Not Reportable 08/18/19 03:45 Tear Drop Cells Not Reportable 08/18/19 03:45 Ovalocytes Not Reportable 08/18/19 03:45 Helmet Cells Not Reportable 08/18/19 03:45 [place] Bodies Not Reportable 08/18/19 03:45 Skippers Rings Not Reportable 08/18/19 03:45 Herbert Cells Not Reportable 08/18/19 03:45 Bite Cells Not Reportable 08/18/19 03:45 Crenated Cell Not Reportable 08/18/19 03:45 Elliptocytes Not Reportable 08/18/19 03:45 Acanthocytes (Spur) Not Reportable 08/18/19 03:45 Rouleaux Not Reportable 08/18/19 03:45 Hemoglobin C Crystals Not Reportable 08/18/19 03:45 Schistocytes Not Reportable 08/18/19 03:45 Malaria parasites Not Reportable 08/18/19 03:45 William Bodies Not Reportable 08/18/19 03:45 Hem Pathologist Commnt No 08/18/19 03:45 PT 15.5 Sec. (12.2-14.9) H 08/18/19 03:44 INR 1.26 (0.87-1.13) H 08/18/19 03:44 VBG pH 7.438 (7.320-7.420) H 08/18/19 03:44 Sodium 139 mmol/L (137-145) 08/19/19 03:36 Potassium 4.0 mmol/L (3.6-5.0) 08/19/19 03:36 Chloride 105.1 mmol/L (98-107) 08/19/19 03:36 Carbon Dioxide 22 mmol/L (22-30) 08/19/19 03:36 Anion Gap 16 mmol/L 08/19/19 03:36 BUN 10 mg/dL (7-17) 08/19/19 03:36 Creatinine 0.5 mg/dL (0.7-1.2) L 08/19/19 03:36 Estimated GFR > 60 ml/min 08/19/19 03:36 BUN/Creatinine Ratio 20 % 08/19/19 03:36 Glucose 190 mg/dL (65-100) H 08/19/19 03:36 Lactic Acid 0.70 mmol/L (0.7-2.0) 08/18/19 05:29 Calcium 8.3 mg/dL (8.4-10.2) L 08/19/19 03:36 Total Bilirubin < 0.20 mg/dL (0.1-1.2) 08/19/19 03:36 AST 26 units/L (5-40) 08/19/19 03:36 ALT 28 units/L (7-56) 08/19/19 03:36 Alkaline Phosphatase 89 units/L (35-129) 08/19/19 03:36 Total Protein 7.5 g/dL (6.3-8.2) 08/19/19 03:36 Albumin 3.2 g/dL (3.9-5) L 08/19/19 03:36 Albumin/Globulin Ratio 0.7 % 08/19/19 03:36 HCG, Qual Negative (Negative) 08/18/19 03:50 Urine Color Yellow (Yellow) 08/18/19 06:36 Urine Turbidity Hazy (Clear) 08/18/19 06:36 Urine pH 7.0 (5.0-7.0) 08/18/19 06:36 Ur Specific [place] 1.058 (1.003-1.030) H 08/18/19 06:36 Urine Protein <15 mg/dl mg/dL (Negative) 08/18/19 06:36 Urine Glucose (UA) Neg mg/dL (Negative) 08/18/19 06:36 Urine Ketones Tr mg/dL (Negative) 08/18/19 06:36 Urine Blood Lg (Negative) 08/18/19 06:36 Urine Nitrite Neg (Negative) 08/18/19 06:36 Urine Bilirubin Neg (Negative) 08/18/19 06:36 Urine Urobilinogen < 2.0 mg/dL (<2.0) 08/18/19 06:36 Ur Leukocyte Esterase Neg (Negative) 08/18/19 06:36 Urine WBC (Auto) 5.0 /HPF (0.0-6.0) 08/18/19 06:36 Urine RBC (Auto) 33.0 /HPF (0.0-6.0) 08/18/19 06:36 U Epithel Cells (Auto) 2.0 /HPF (0-13.0) 08/18/19 06:36 Urine Mucus Few /HPF 08/18/19 06:36 Monoscreen Negative (Negative) 08/18/19 03:50 - Imaging and Cardiology CT Scan - head: report reviewed, image reviewed Active Medications - Current Medications Current Medications: Generic Name Dose Route Start Last Admin Trade Name Freq PRN Reason Stop Dose Admin Acetaminophen 650 mg 08/18/19 10:22 08/19/19 15:32 Tylenol PO 650 mg Q6H PRN Administration Non Cardiac Pain or Temp>100.5 Benzocaine/Menthol 1 each 08/19/19 04:57 08/19/19 05:16 Cepacol X Strength MM 1 each Q2HR PRN Administration Sore Throat Benzonatate 100 mg 08/19/19 04:54 08/19/19 15:32 Tessalon Perles PO 100 mg Q8HR PRN Administration cough Heparin Sodium (Porcine) 5,000 unit 08/19/19 22:00 Heparin SUB-Q Q12HR [facility] Sodium Chloride 1,000 mls @ 100 mls/hr 08/18/19 11:00 08/19/19 08:17 Nacl 0.9% 1000 Ml IV 100 mls/hr DIRECT [facility] Administration Ceftriaxone Sodium 2 gm in 100 mls @ 200 mls/hr 08/18/19 17:00 08/19/19 11:00 Rocephin/Ns 2 Gm/100 Ml IV 200 mls/hr Q24HR [facility] Administration Protocol Metronidazole 500 mg in 100 mls @ 100 mls/hr 08/18/19 17:00 08/19/19 13:55 Flagyl 500 Mg/100 Ml IV 100 mls/hr Q8HR [facility] Administration Protocol Methylprednisolone Sodium Succinate 125 mg 08/18/19 14:00 08/19/19 13:55 Solu-Medrol IV 08/19/19 23:59 125 mg Q8HR [facility] Administration Methylprednisolone Sodium Succinate 60 mg 08/20/19 06:00 Solu-Medrol IV 08/20/19 22:01 Q8HR [facility] Methylprednisolone Sodium Succinate 40 mg 08/21/19 06:00 Solu-Medrol IV 08/21/19 22:01 Q8HR [facility] Morphine Sulfate 2 mg 08/18/19 10:22 08/19/19 03:05 Morphine IV 2 mg Q4H PRN Administration Pain , Severe (7-10) Ondansetron HCl 4 mg 08/18/19 10:22 Zofran IV Q4H PRN Nausea And Vomiting Pantoprazole Sodium 40 mg 08/20/19 10:00 Protonix PO DAILY [facility]
[2019-08-19] MEDS: HEPARIN SUB-Q SCH (21:31)
[2019-08-19] MEDS: CLARITIN-D 12HR PO SCH (21:31)
[2019-08-19] MEDS: ZOFRAN IV PRN (21:35)
[2019-08-20] MEDS: CEPACOL X STRENGTH MM PRN ×2 (05:41→22:20)
[2019-08-20] MEDS: FLAGYL 500 MG/100 ML 500 MG/100 ML BAG IV SCH ×3 (05:43→22:20)
[2019-08-20] MEDS: SOLU-Medrol IV SCH ×3 (05:43→22:20)
--- NOTE | 2019-08-20 09:39 | Progress Note ---
<DAVID ROSE A - Last Filed: 08/20/19 09:39> Subjective Date of service: 08/20/19 Objective Vital Signs - 12hr 08/19/19 08/19/19 08/19/19 22:00 23:00 23:18 Temperature Pulse Rate 67 66 88 Pulse Rate [ From Monitor] Respiratory 15 19 28 H Rate Blood Pressure 128/73 128/73 118/67 O2 Sat by Pulse 94 99 100 Oximetry 08/20/19 08/20/19 08/20/19 00:00 01:00 02:00 Temperature 98.8 F Pulse Rate 104 H 71 Pulse Rate [ 66 From Monitor] Respiratory 19 13 18 Rate Blood Pressure 118/67 127/77 134/77 O2 Sat by Pulse 99 97 88 Oximetry 08/20/19 08/20/19 08/20/19 03:00 03:53 04:00 Temperature 98.2 F Pulse Rate 72 64 Pulse Rate [ 66 From Monitor] Respiratory 20 13 Rate Blood Pressure 144/75 129/66 O2 Sat by Pulse 90 98 Oximetry 08/20/19 08/20/19 08/20/19 05:00 06:00 08:00 Temperature 97.5 F L Pulse Rate Pulse Rate [ From Monitor] Respiratory 22 28 H Rate Blood Pressure 127/69 120/78 O2 Sat by Pulse 99 100 Oximetry CBC and BMP: 08/19/19 03:36 08/19/19 03:36 ABG, PT/INR, D-dimer: PT/INR, D-dimer PT 15.5 Sec. (12.2-14.9) H 08/18/19 03:44 INR 1.26 (0.87-1.13) H 08/18/19 03:44 Abnormal lab findings: Abnormal Labs 08/18/19 08/18/19 08/18/19 03:44 03:44 03:45 WBC 26.8 H MCH 27 L Seg Neuts % (Manual) 84.0 H Lymphocytes % (Manual) 6.0 L Monocytes % (Manual) 10.0 H Seg Neutrophils # Man 22.5 H Monocytes # (Manual) 2.7 H PT 15.5 H INR 1.26 H VBG pH 7.438 H Sodium Carbon Dioxide Creatinine Glucose Calcium AST Albumin Ur Specific [place] 08/18/19 08/18/19 08/19/19 05:29 06:36 03:36 WBC 29.4 H MCH 27 L Seg Neuts % (Manual) Lymphocytes % (Manual) Monocytes % (Manual) Seg Neutrophils # Man Monocytes # (Manual) PT INR VBG pH Sodium 136 L Carbon Dioxide 21 L Creatinine 0.6 L Glucose 136 H Calcium 8.1 L AST 46 H Albumin 3.6 L Ur Specific [place] 1.058 H 08/19/19 03:36 WBC MCH Seg Neuts % (Manual) Lymphocytes % (Manual) Monocytes % (Manual) Seg Neutrophils # Man Monocytes # (Manual) PT INR VBG pH Sodium Carbon Dioxide Creatinine 0.5 L Glucose 190 H Calcium 8.3 L AST Albumin 3.2 L Ur Specific [place] <MELVIN GAONA - Last Filed: 08/20/19 10:47> Assessment and Plan - Patient Problems (1) Exudative tonsillitis Current Visit: Yes Status: Acute (2) Rheumatoid arthritis Current Visit: Yes Status: Acute Qualifiers: Rheumatoid arthritis location: unspecified site Rheumatoid factor presence: unspecified presence Qualified Code(s): M06.9 - Rheumatoid arthritis, un specified (3) SIRS (systemic inflammatory response syndrome) Current Visit: Yes Status: Acute (4) Morbid obesity Current Visit: Yes Status: Acute Objective Vital Signs - 12hr 08/19/19 08/19/19 08/20/19 23:00 23:18 00:00 Temperature 98.8 F Pulse Rate 66 88 104 H Pulse Rate [ 66 From Monitor] Respiratory 19 28 H 19 Rate Blood Pressure 128/73 118/67 118/67 O2 Sat by Pulse 99 100 99 Oximetry 08/20/19 08/20/19 08/20/19 01:00 02:00 03:00 Temperature Pulse Rate 71 72 Pulse Rate [ From Monitor] Respiratory 13 18 20 Rate Blood Pressure 127/77 134/77 144/75 O2 Sat by Pulse 97 88 90 Oximetry 08/20/19 08/20/19 08/20/19 03:53 04:00 05:00 Temperature 98.2 F Pulse Rate 64 Pulse Rate [ 66 From Monitor] Respiratory 13 22 Rate Blood Pressure 129/66 127/69 O2 Sat by Pulse 98 99 Oximetry 08/20/19 08/20/19 08/20/19 06:00 07:00 08:00 Temperature 97.5 F L Pulse Rate 69 130 H Pulse Rate [ From Monitor] Respiratory 28 H Rate Blood Pressure 120/78 136/75 121/60 O2 Sat by Pulse 100 99 96 Oximetry 08/20/19 08/20/19 09:00 10:00 Temperature Pulse Rate 73 80 Pulse Rate [ From Monitor] Respiratory 17 22 Rate Blood Pressure 129/70 106/63 O2 Sat by Pulse 98 97 Oximetry CBC and BMP: 08/20/19 09:34 08/20/19 09:34 ABG, PT/INR, D-dimer: PT/INR, D-dimer PT 15.5 Sec. (12.2-14.9) H 08/18/19 03:44 INR 1.26 (0.87-1.13) H 08/18/19 03:44 Abnormal lab findings: Abnormal Labs 08/18/19 08/18/19 08/18/19 03:44 03:44 03:45 WBC 26.8 H MCH 27 L Seg Neuts % (Manual) 84.0 H Lymphocytes % (Manual) 6.0 L Monocytes % (Manual) 10.0 H Seg Neutrophils # Man 22.5 H Monocytes # (Manual) 2.7 H PT 15.5 H INR 1.26 H VBG pH 7.438 H Sodium Carbon Dioxide Creatinine Glucose Calcium AST Albumin Ur Specific [place] 08/18/19 08/18/19 08/19/19 05:29 06:36 03:36 WBC 29.4 H MCH 27 L Seg Neuts % (Manual) Lymphocytes % (Manual) Monocytes % (Manual) Seg Neutrophils # Man Monocytes # (Manual) PT INR VBG pH Sodium 136 L Carbon Dioxide 21 L Creatinine 0.6 L Glucose 136 H Calcium 8.1 L AST 46 H Albumin 3.6 L Ur Specific [place] 1.058 H 08/19/19 08/20/19 08/20/19 03:36 09:34 09:34 WBC 23.3 H MCH 26 L Seg Neuts % (Manual) Lymphocytes % (Manual) Monocytes % (Manual) Seg Neutrophils # Man Monocytes # (Manual) PT INR VBG pH Sodium Carbon Dioxide 20 L Creatinine 0.5 L 0.5 L Glucose 190 H 205 H Calcium 8.3 L 8.3 L AST Albumin 3.2 L 3.2 L Ur Specific [place]
[2019-08-20 10:07] LABS: Hematocrit 35.9 % (30.3-42.9); Hemoglobin 11.4 gm/dl (10.1-14.3); Mean Corpuscular HGB Conc 32 % (30-34); Mean Corpuscular Volume 83 fl (79-97); Platelet Count 330 K/mm3 (140-440); Red Blood Count 4.33 M/mm3 (3.65-5.03); Red Cell Distribution Width 14.8 % (13.2-15.2)
[2019-08-20 10:33] LABS: Alanine Aminotransferase 22 units/L (7-56); Albumin 3.2 g/dL (3.9-5); BUN/Creatinine Ratio 22; Blood Urea Nitrogen 11 mg/dL (7-17); Calcium 8.3 mg/dL (8.4-10.2); Hemolysis Index 9
--- NOTE | 2019-08-20 10:50 | Progress Note ---
Assessment and Plan - Patient Problems (1) Exudative tonsillitis Current Visit: Yes Status: Acute Plan to address problem: Significant improvement of tonsillitis. Anticipated discharge in a.m. We'll recommend tonsillectomy. Consultation sent to surgery and at [facility] which she had previously. ENT surgeon. (2) Rheumatoid arthritis Current Visit: Yes Status: Acute Qualifiers: Rheumatoid arthritis location: unspecified site Rheumatoid factor presence: unspecified presence Qualified Code(s): M06.9 - Rheumatoid arthritis, unspecified Plan to address problem: Patient has no joint pain on the deviation. Continue present medical management. She is immunocompromised secondary to medications but will be able to treat despite this. (3) SIRS (systemic inflammatory response syndrome) Current Visit: Yes Status: Acute Plan to address problem: Resolving with IV antibiotics. (4) Morbid obesity Current Visit: Yes Status: Acute Plan to address problem: We'll recommend tonsillar tonsillectomy. History Interval history: Patient clinically doing much better able to speak and talk 8 without any difficulty. Hospitalist Physical - Constitutional Vitals: Temp Pulse Resp BP Pulse Ox 97.5 F L 80 22 106/63 97 08/20/19 08:00 08/20/19 10:00 08/20/19 10:00 08/20/19 10:00 08/20/19 10:00 General appearance: Present: no acute distress - EENT Eyes: Present: PERRL, EOM intact ENT: hearing intact, clear oral mucosa, dentition normal, other (significant i mprovement from swelling of tonsils. Less erythematous less edematous.) - Neck Neck: Present: supple, normal ROM - Respiratory Respiratory: bilateral: CTA - Cardiovascular Rhythm: regular - Extremities Extremities: no ischemia, pulses intact, pulses symmetrical, No edema, normal temperature, normal color Peripheral Pulses: within normal limits - Abdominal General gastrointestinal: soft, non-tender, non-distended, normal bowel sounds - Integumentary Integumentary: Present: clear, warm, dry - Psychiatric Psychiatric: appropriate mood/affect, intact judgment & insight, memory intact - Neurologic Neurologic: CNII-XII intact, moves all extremities Results - Labs CBC & Chem 7: 08/20/19 09:34 08/20/19 09:34 Labs: Laboratory Last Values WBC 23.3 K/mm3 (4.5-11.0) H 08/20/19 09:34 RBC 4.33 M/mm3 (3.65-5.03) 08/20/19 09:34 Hgb 11.4 gm/dl (10.1-14.3) 08/20/19 09:34 Hct 35.9 % (30.3-42.9) 08/20/19 09:34 MCV 83 fl (79-97) 08/20/19 09:34 MCH 26 pg (28-32) L 08/20/19 09:34 MCHC 32 % (30-34) 08/20/19 09:34 RDW 14.8 % (13.2-15.2) 08/20/19 09:34 Plt Count 330 K/mm3 (140-440) 08/20/19 09:34 Add Manual Diff Complete 08/18/19 03:45 Total Counted 100 08/18/19 03:45 Seg Neuts % (Manual) 84.0 % (40.0-70.0) H 08/18/19 03:45 Band Neutrophils % 0 % 08/18/19 03:45 Lymphocytes % (Manual) 6.0 % (13.4-35.0) L 08/18/19 03:45 Reactive Lymphs % (Man) 0 % 08/18/19 03:45 Monocytes % (Manual) 10.0 % (0.0-7.3) H 08/18/19 03:45 Eosinophils % (Manual) 0 % (0.0-4.3) 08/18/19 03:45 Basophils % (Manual) 0 % (0.0-1.8) 08/18/19 03:45 Metamyelocytes % 0 % 08/18/19 03:45 Myelocytes % 0 % 08/18/19 03:45 Promyelocytes % 0 % 08/18/19 03:45 Blast Cells % 0 % 08/18/19 03:45 Nucleated RBC % Not Reportable 08/18/19 03:45 Seg Neutrophils # Man 22.5 K/mm3 (1.8-7.7) H 08/18/19 03:45 Band Neutrophils # 0.0 K/mm3 08/18/19 03:45 Lymphocytes # (Manual) 1.6 K/mm3 (1.2-5.4) 08/18/19 03:45 Abs React Lymphs (Man) 0.0 K/mm3 08/18/19 03:45 Monocytes # (Manual) 2.7 K/mm3 (0.0-0.8) H 08/18/19 03:45 Eosinophils # (Manual) 0.0 K/mm3 (0.0-0.4) 08/18/19 03:45 Basophils # (Manual) 0.0 K/mm3 (0.0-0.1) 08/18/19 03:45 Metamyelocytes # 0.0 K/mm3 08/18/19 03:45 Myelocytes # 0.0 K/mm3 08/18/19 03:45 Promyelocytes # 0.0 K/mm3 08/18/19 03:45 Blast Cells # 0.0 K/mm3 08/18/19 03:45 WBC Morphology Not Reportable 08/18/19 03:45 Hypersegmented Neuts Not Reportable 08/18/19 03:45 Hyposegmented Neuts Not Reportable 08/18/19 03:45 Hypogranular Neuts Not Reportable 08/18/19 03:45 Smudge Cells Not Reportable 08/18/19 03:45 Toxic Granulation Not Reportable 08/18/19 03:45 Toxic Vacuolation Not Reportable 08/18/19 03:45 Dohle Bodies Not Reportable 08/18/19 03:45 Pelger-Huet Anomaly Not Reportable 08/18/19 03:45 Luz Maria Rods Not Reportable 08/18/19 03:45 Platelet Estimate Consistent w auto 08/18/19 03:45 Clumped Platelets Not Reportable 08/18/19 03:45 Plt Clumps, EDTA Not Reportable 08/18/19 03:45 Large Platelets Not Reportable 08/18/19 03:45 Giant Platelets Not Reportable 08/18/19 03:45 Platelet Satelliting Not Reportable 08/18/19 03:45 Plt Morphology Comment Not Reportable 08/18/19 03:45 RBC Morphology Not Reportable 08/18/19 03:45 Dimorphic RBCs Not Reportable 08/18/19 03:45 Polychromasia Not Reportable 08/18/19 03:45 Hypochromasia Not Reportable 08/18/19 03:45 Poikilocytosis Not Reportable 08/18/19 03:45 Anisocytosis 1+ 08/18/19 03:45 Microcytosis Not Reportable 08/18/19 03:45 Macrocytosis Not Reportable 08/18/19 03:45 Spherocytes Not Reportable 08/18/19 03:45 Pappenheimer Bodies Not Reportable 08/18/19 03:45 Sickle Cells Not Reportable 08/18/19 03:45 Target Cells Not Reportable 08/18/19 03:45 Tear Drop Cells Not Reportable 08/18/19 03:45 Ovalocytes Not Reportable 08/18/19 03:45 Helmet Cells Not Reportable 08/18/19 03:45 [place] Bodies Not Reportable 08/18/19 03:45 Buchanan Rings Not Reportable 08/18/19 03:45 Herbert Cells Not Reportable 08/18/19 03:45 Bite Cells Not Reportable 08/18/19 03:45 Crenated Cell Not Reportable 08/18/19 03:45 Elliptocytes Not Reportable 08/18/19 03:45 Acanthocytes (Spur) Not Reportable 08/18/19 03:45 Rouleaux Not Reportable 08/18/19 03:45 Hemoglobin C Crystals Not Reportable 08/18/19 03:45 Schistocytes Not Reportable 08/18/19 03:45 Malaria parasites Not Reportable 08/18/19 03:45 William Bodies Not Reportable 08/18/19 03:45 Hem Pathologist Commnt No 08/18/19 03:45 PT 15.5 Sec. (12.2-14.9) H 08/18/19 03:44 INR 1.26 (0.87-1.13) H 08/18/19 03:44 VBG pH 7.438 (7.320-7.420) H 08/18/19 03:44 Sodium 140 mmol/L (137-145) 08/20/19 09:34 Potassium 3.7 mmol/L (3.6-5.0) 08/20/19 09:34 Chloride 103.9 mmol/L (98-107) 08/20/19 09:34 Carbon Dioxide 20 mmol/L (22-30) L 08/20/19 09:34 Anion Gap 20 mmol/L 08/20/19 09:34 BUN 11 mg/dL (7-17) 08/20/19 09:34 Creatinine 0.5 mg/dL (0.7-1.2) L 08/20/19 09:34 Estimated GFR > 60 ml/min 08/20/19 09:34 BUN/Creatinine Ratio 22 % 08/20/19 09:34 Glucose 205 mg/dL (65-100) H 08/20/19 09:34 Lactic Acid 0.70 mmol/L (0.7-2.0) 08/18/19 05:29 Calcium 8.3 mg/dL (8.4-10.2) L 08/20/19 09:34 Total Bilirubin 0.20 mg/dL (0.1-1.2) 08/20/19 09:34 AST 18 units/L (5-40) 08/20/19 09:34 ALT 22 units/L (7-56) 08/20/19 09:34 Alkaline Phosphatase 80 units/L (35-129) 08/20/19 09:34 Total Protein 7.1 g/dL (6.3-8.2) 08/20/19 09:34 Albumin 3.2 g/dL (3.9-5) L 08/20/19 09:34 Albumin/Globulin Ratio 0.8 % 08/20/19 09:34 HCG, Qual Negative (Negative) 08/18/19 03:50 Urine Color Yellow (Yellow) 08/18/19 06:36 Urine Turbidity Hazy (Clear) 08/18/19 06:36 Urine pH 7.0 (5.0-7.0) 08/18/19 06:36 Ur Specific [place] 1.058 (1.003-1.030) H 08/18/19 06:36 Urine Protein <15 mg/dl mg/dL (Negative) 08/18/19 06:36 Urine Glucose (UA) Neg mg/dL (Negative) 08/18/19 06:36 Urine Ketones Tr mg/dL (Negative) 08/18/19 06:36 Urine Blood Lg (Negative) 08/18/19 06:36 Urine Nitrite Neg (Negative) 08/18/19 06:36 Urine Bilirubin Neg (Negative) 08/18/19 06:36 Urine Urobilinogen < 2.0 mg/dL (<2.0) 08/18/19 06:36 Ur Leukocyte Esterase Neg (Negative) 08/18/19 06:36 Urine WBC (Auto) 5.0 /HPF (0.0-6.0) 08/18/19 06:36 Urine RBC (Auto) 33.0 /HPF (0.0-6.0) 08/18/19 06:36 U Epithel Cells (Auto) 2.0 /HPF (0-13.0) 08/18/19 06:36 Urine Mucus Few /HPF 08/18/19 06:36 Monoscreen Negative (Negative) 08/18/19 03:50 Active Medications - Current Medications Current Medications: Generic Name Dose Route Start Last Admin Trade Name Freq PRN Reason Stop Dose Admin Acetaminophen 650 mg 08/18/19 10:22 08/19/19 20:00 Tylenol PO 650 mg Q6H PRN Administration Non Cardiac Pain or Temp>100.5 Benzocaine/Menthol 1 each 08/19/19 04:57 08/20/19 05:41 Cepacol X Strength MM 1 each Q2HR PRN Administration Sore Throat Benzonatate 100 mg 08/19/19 04:54 08/19/19 15:32 Tessalon Perles PO 100 mg Q8HR PRN Administration cough Heparin Sodium (Porcine) 5,000 unit 08/19/19 22:00 08/19/19 21:31 Heparin SUB-Q 5,000 unit Q12HR DIEGO Administration Ceftriaxone Sodium 2 gm in 100 mls @ 200 mls/hr 08/18/19 17:00 08/19/19 11:00 Rocephin/Ns 2 Gm/100 Ml IV 200 mls/hr Q24HR DIEGO Administration Protocol Metronidazole 500 mg in 100 mls @ 100 mls/hr 08/18/19 17:00 08/20/19 05:43 Flagyl 500 Mg/100 Ml IV 100 mls/hr Q8HR DIEGO Administration Protocol Loratadine/Pseudoephedrine Sulfate 1 each 08/19/19 22:00 08/19/19 21:31 Claritin-D 12hr PO 1 each Q12HR DIEGO Administration Methylprednisolone Sodium Succinate 60 mg 08/20/19 06:00 08/20/19 05:43 Solu-Medrol IV 08/20/19 22:01 60 mg Q8HR DIEGO Administration Methylprednisolone Sodium Succinate 40 mg 08/21/19 06:00 Solu-Medrol IV 08/21/19 22:01 Q8HR DIEGO Morphine Sulfate 2 mg 08/18/19 10:22 08/19/19 03:05 Morphine IV 2 mg Q4H PRN Administration Pain , Severe (7-10) Ondansetron HCl 4 mg 08/18/19 10:22 08/19/19 21:35 Zofran IV 4 mg Q4H PRN Administration Nausea And Vomiting Pantoprazole Sodium 40 mg 08/20/19 10:00 Protonix PO DAILY DIEGO
[2019-08-20] MEDS: PROTONIX PO SCH (11:29)
[2019-08-20] MEDS: HEPARIN SUB-Q SCH ×2 (11:29→22:20)
[2019-08-20] MEDS: ROCEPHIN/NS 2 GM/100 ML 2 GM/100 ML BAG IV SCH (11:30)
[2019-08-20] MEDS: CLARITIN-D 12HR PO SCH ×2 (11:30→22:21)
[2019-08-20 11:58] LABS: Basophils % (Manual) 0 % (0.0-1.8); Eosinophils % (Manual) 0 % (0.0-4.3); Monocytes % (Manual) 0 % (0.0-7.3); Total Cells Counted 100
[2019-08-20 11:59] LABS: Hypersegmented Neutrophils 1+
--- NOTE | 2019-08-20 11:59 | Progress Note ---
Assessment and Plan Cultures: 08/18/2019 blood culture: In progress A/P: 44-year-old female with rheumatoid arthritis who is on immunosuppression with Humira presented to the emergency room early this morning with complaints of severe sore throat and difficulty swallowing that began about 2-3 days prior: 1) Sepsis, secondary to severe bilateral tonsillitis: Patient is immunocompromised secondary to rheumatoid arthritis and Humira use. Has significant leukocytosis which is neutrophilic. Monospot negative. ?acute on chronic. She has previously had similar tonsillitis before and was recommended to get them removed but decided to hold off. Recs: Continue Ceftriaxone, Flagyl f/u EBV and CMV serologies ordered (Monospot can be negative early on in the disease process) WBC elevation likely also from steroids, improving Holly Carty MD, FACP [facility] ([facility] C: [phone] O: [phone] F: [phone] Subjective Date of service: 08/20/19 Interval history: No fever. Voice continuing to improve. Reports some shakes ?from steroids but otherwise feeling better. No cough or shortness of breath. No diarrhea. Objective - Exam Narrative Exam: Physical Exam: Constitutional: Alert, cooperative. No acute distress. Obese Head, Ears, Nose: Normocephalic, atraumatic. External ears, nose normal Eyes: Conjunctivae/corneas clear. No icterus. No ptosis. Neck: mild tenderness and swelling b/l anterior neck Oral: dentition fair, no thrush Cardiovascular: S1, S2 normal. Respiratory: Good air entry, clear to auscultation bilaterally GI: Soft, non-tender; bowel sounds normal. No peritoneal signs Musculoskeletal: No pedal edema, no cyanosis. Skin: No rash or abscess Hem/Lymphatic: No palpable cervical or supraclavicular nodes. No lymphangitis Psych: Mood ok. Affect normal Neurological: Awake, alert, oriented. No gross abnormality - Constitutional Vitals: Vital Signs Temp Pulse Resp BP Pulse Ox 97.5 F L 80 22 106/63 95 08/20/19 08:00 08/20/19 10:00 08/20/19 10:00 08/20/19 11:05 08/20/19 11:05 Temperature -Last 24 Hours Temperature 97.5 F Temperature 98.2 F Temperature 98.8 F Temperature 97.8 F Temperature 97.8 F Temperature 98.5 F - Labs CBC & Chem 7: 08/20/19 09:34 08/20/19 09:34 Labs: Abnormal lab results 08/20/19 08/20/19 Range/Units 09:34 09:34 WBC 23.3 H (4.5-11.0) K/mm3 MCH 26 L (28-32) pg Carbon Dioxide 20 L (22-30) mmol/L Creatinine 0.5 L (0.7-1.2) mg/dL Glucose 205 H (65-100) mg/dL Calcium 8.3 L (8.4-10.2) mg/dL Albumin 3.2 L (3.9-5) g/dL
[2019-08-20 12:00] LABS: Platelet Estimate Consistent w Auto
[2019-08-20] MEDS: MORPHINE IV PRN (18:25)
[2019-08-20] MEDS: ZOFRAN IV PRN (18:26)
[2019-08-21] MEDS: FLAGYL 500 MG/100 ML 500 MG/100 ML BAG IV SCH (05:54)
[2019-08-21] MEDS ORDERED: SOLU-Medrol IV SCH (06:00)
[2019-08-21] MEDS: ROCEPHIN/NS 2 GM/100 ML 2 GM/100 ML BAG IV SCH (10:35)
[2019-08-21] MEDS: HEPARIN SUB-Q SCH (10:36)
[2019-08-21] MEDS: PROTONIX PO SCH (10:36)
--- NOTE | 2019-08-21 10:36 | Discharge Summary ---
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 Patient was started on steroids and antibiotics defervesced well over today. A time. Stable talking and swallowing eating without difficulty at all and no shortness of breath no throat pain no hypoxemia. Patient's blood cultures showed no growth after 72 hours. Actual visual visualization of the tonsils appear normal except for hypertrophy. We will recommend tonsillectomy. I have sent faxed to him recently for possible tonsillectomy. Continue antibiotics with Augmentin. Disposition: - TO HOME OR SELFCARE - Discharge Diagnoses (1) Exudative tonsillitis Status: Acute (2) Rheumatoid arthritis Status: Acute Qualifiers: Rheumatoid arthritis location: unspecified site Rheumatoid factor presence: unspecified presence Qualified Code(s): M06.9 - Rheumatoid arthritis, unspecified Comment: stable (3) SIRS (systemic inflammatory response syndrome) Status: Acute Comment: Negative due to infection. Tonsillitis. (4) Morbid obesity Status: Acute Comment: Diet weight loss. Core Measure Documentation - Palliative Care Palliative Care/ Comfort Measures: Not Applicable - Core Measures Any of the following diagnoses?: none Exam - Constitutional Vitals: Temp Pulse Resp BP Pulse Ox 98.2 F 60 18 91/60 99 08/21/19 05:57 08/21/19 05:57 08/21/19 05:57 08/21/19 05:57 08/21/19 05:57 General appearance: Present: no acute distress, well-nourished - EENT Eyes: Present: PERRL ENT: hearing intact, clear oral mucosa, other (tonsilar hypertrophy but has resolved erythema) - Neck Neck: Present: supple, normal ROM - Respiratory Respiratory effort: normal Respiratory: bilateral: CTA - Cardiovascular Heart Sounds: Present: S1 & S2. Absent: rub, click - Extremities Extremities: pulses symmetrical, No edema Peripheral Pulses: within normal limits - Abdominal General gastrointestinal: Present: soft, non-tender, non-distended, normal bowel sounds Female genitourinary: Present: normal - Integumentary Integumentary: Present: clear, warm, dry - Musculoskeletal Musculoskeletal: gait normal, strength equal bilaterally - Psychiatric Psychiatric: appropriate mood/affect, intact judgment & insight - Neurologic Neurologic: CNII-XII intact, moves all extremities Plan Activity: no restrictions Diet: low fat, low carbohydrate Follow up with: PRIMARY CARE, [Primary Care Provider] - 7 Days
[2019-08-21] MEDS: MORPHINE IV PRN (10:50)
--- NOTE | 2019-08-21 11:53 | Progress Note ---
Assessment and Plan Cultures: 08/18/2019 blood culture: In progress A/P: 44-year-old female with rheumatoid arthritis who is on immunosuppression with Humira presented to the emergency room early this morning with complaints of severe sore throat and difficulty swallowing that began about 2-3 days prior: 1) Sepsis, secondary to severe bilateral tonsillitis: Patient is immunocompromised secondary to rheumatoid arthritis and Humira use. Has significant leukocytosis which is neutrophilic. Monospot negative. ?acute on chronic. She has previously had similar tonsillitis before and was recommended to get them removed but decided to hold off. Recs: Continues to improve, OK to discharge on PO Augmentin patient will be following up with ENT for tonsillectomy f/u EBV and CMV serologies Holly Carty MD, FACP [facility] ([facility] C: [phone] O: [phone] F: [phone] Subjective Date of service: 08/21/19 Interval history: Has no complaints today. No fever. Swalling improving. No cough or shortness of breath. No diarrhea. Voice remains improved. Objective - Exam Narrative Exam: Physical Exam: Constitutional: Alert, cooperative. No acute distress. Obese Head, Ears, Nose: Normocephalic, atraumatic. External ears, nose normal Eyes: Conjunctivae/corneas clear. No icterus. No ptosis. Neck: no tenderness. Oral: dentition fair, no thrush. Mild b/l tonsillar enlargement Cardiovascular: S1, S2 normal. Respiratory: Good air entry, clear to auscultation bilaterally GI: Soft, non-tender; bowel sounds normal. No peritoneal signs Musculoskeletal: No pedal edema, no cyanosis. Skin: No rash or abscess Hem/Lymphatic: No palpable cervical or supraclavicular nodes. No lymphangitis Psych: Mood ok. Affect normal Neurological: Awake, alert, oriented. No gross abnormality - Constitutional Vitals: Vital Signs Temp Pulse Resp BP Pulse Ox 98.2 F 60 18 91/60 99 08/21/19 05:57 08/21/19 05:57 08/21/19 05:57 08/21/19 05:57 08/21/19 05:57 Temperature -Last 24 Hours Temperature 98.2 F Temperature 98.4 F Temperature 98.6 F Temperature 98.7 F Temperature 98.4 F - Labs CBC & Chem 7: 08/20/19 09:34 08/20/19 09:34 Labs: Abnormal lab results 08/20/19 Range/Units 09:34 Seg Neuts % (Manual) 92.0 H (40.0-70.0) % Lymphocytes % (Manual) 8.0 L (13.4-35.0) % Seg Neutrophils # Man 21.4 H (1.8-7.7) K/mm3
[2019-08-21 12:00] VITALS: BP 108/60
--- NOTE | 2019-08-21 12:42 | Event Note ---
Date: 08/21/19
== END 2019-08-21 16:50 | disposition home or self-care (01) | DRG 872 ==
LOC: ED 02:41 → CC1 09:41 → 3A 08-20 12:23
PROVIDERS: ADMIT Internal Medicine; ATTEND Internal Medicine
DX: A41.9 Sepsis, unspecified organism (principal); E87.1 Hypo-osmolality and hyponatremia; Z68.42 Body mass index [BMI] 45.0-49.9, adult; T45.1X5A Adverse effect of antineoplastic and immunosuppressive drugs, initial encounter; J03.90 Acute tonsillitis, unspecified; M06.9 Rheumatoid arthritis, unspecified; E66.01 Morbid (severe) obesity due to excess calories; Z90.49 Acquired absence of other specified parts of digestive tract; Z82.49 Family history of ischemic heart disease and other diseases of the circulatory system; Y92.098 Other place in other non-institutional residence as the place of occurrence of the external cause
CPT/HCPCS: 36415; 70491; 80053; 81001; 82140; 82805; 84703; 85007; 85025; 85027; 85610; 86308; 86644; 86645; 86665; 87040; 87086; 87497; 93005; 93010; 94644; 96374; G0378; C9113; J0295; J0696; J1644; J2270; J2405; J2930; J7030; J7040; Q9967

== ENCOUNTER 2021-05-06 16:15 | Emergency (ER) | payer SELFPAY ==
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
[2021-05-06 20:56] VITALS: BP 119/57
== END 2021-05-06 19:50 | disposition home or self-care (01) ==
LOC: ED 16:15
DX: M54.2 Cervicalgia (principal); M25.511 Pain in right shoulder; M19.90 Unspecified osteoarthritis, unspecified site; Z90.49 Acquired absence of other specified parts of digestive tract; Z79.899 Other long term (current) drug therapy; V49.49XA Driver injured in collision with other motor vehicles in traffic accident, initial encounter; Y92.410 Unspecified street and highway as the place of occurrence of the external cause; Y93.89 Activity, other specified; Y99.8 Other external cause status
CPT/HCPCS: 99282